=== PATIENT | male | born 1955 | race Caucasian/White ===

== ENCOUNTER 2017-03-02 15:43 | Emergency (ER) | payer OTHER ==
[2017-03-02 16:36] LABS: Hematocrit 44 % (42-52); Hemoglobin 14.9 g/dl (14.0-18.0); Mean Corpuscular HGB Conc 34 g/dl (31-36); Mean Corpuscular Hemoglobin 32 pg (27-31); Mean Corpuscular Volume 93 fL (80-94); Mean Platelet Volume 8 um3 (7.4-10.4); Red Blood Count 4.71 10^6/ul (4.0-5.4); Red Cell Distribution Width 15 % (10.5-15); White Blood Count 7.6 10^3/ul (3.5-10.8)
[2017-03-02 16:53] LABS: Albumin 3.9 g/dL (3.2-5.2); BUN/Creatinine Ratio 14.3 (8-20); C Reactive Protein 4.44 mg/L (< 5.00); EGFR African American 86.3 (>60); EGFR Non-African American 67.1 (>60); Globulin 3.9 g/dL (2-4); Total Bilirubin 0.5 mg/dL (0.2-1.0); Total Protein 7.8 g/dL (6.4-8.9)
[2017-03-02 16:54] LABS: Troponin I 0.01 ng/mL (<0.04)
[2017-03-02 17:23] LABS: Potassium 4.1 mmol/L (3.5-5.0)
[2017-03-02 17:38] LABS: Urine Bacteria Absent (Absent); Urine Bilirubin Negative (Negative); Urine Glucose Negative (Negative); Urine Nitrite Negative (Negative)
[2017-03-02] MEDS ORDERED: Iohexol 300* (CONTRAST) 10 ML SDV IV ONE (17:43)
--- NOTE | 2017-03-02 18:30 | RAD ---
INDICATION: LEFT upper quadrant pain. Bulge in abdomen. Previous hernia repair. COMPARISON: August 01, [address] TECHNIQUE: Multidetector CT images were obtained from the lung bases to the ischial tuberosities with 150 mL Omnipaque 300 IV and oral contrast. Multiplanar reformation. REPORT: Mild LEFT basilar subsegmental atelectasis attributable to mild LEFT hemidiaphragm elevation. Unremarkable liver and gallbladder. Mildly atrophic pancreas. Unremarkable spleen. No CT abnormality of the upper GI, small bowel, medially extending appendix. Mild colonic diverticulosis without findings of diverticulitis. Negative for ascites or free air. 3.4 x 4.1 cm axial plane fat-containing RIGHT inguinal hernia without inflammatory change. 1.2 cm LEFT adrenal nodule consistent with a benign lipid rich adenoma based on comparison with the previous noncontrast CT from 2014 without change in size. Unremarkable RIGHT adrenal gland. Unremarkable kidneys with symmetric nephrograms and pyelograms. Symmetric nephrograms and pyelograms. No suspicious renal lesions or hydronephrosis. Unremarkable nondilated ureters and largely decompressed urinary bladder. Coarse calcification at the prostate. Symmetric seminal vesicles. Negative for lymphadenopathy. Atherosclerotic calcification of normal diameter abdominal aorta and iliac arteries. Physiologic distention of the IVC. Lumbar sacral spine degenerative spondylosis and facet joint osteoarthritis. Associated reactive endplate sclerosis most prominent at L2-L3. No fracture or suspicious focal osseous lesions evident. IMPRESSION: 1. Small to moderate fat-containing RIGHT inguinal hernia without inflammatory change. No additional hernias evident. 2. Normal appendix documented. 3. Mild colonic diverticulosis without findings of diverticulitis. 4. Negative for obstructive uropathy. 5. Unchanged small benign lipid rich adenoma at the LEFT adrenal gland. 6. No etiology for LEFT upper quadrant pain evident.
[2017-03-02 18:56] VITALS: BP 128/77
--- NOTE | 2017-03-03 16:41 | ED ---
Kevin Jefferson Alfonso, scribed for Edwardo Ponce MD on 03/02/17 at 1608 . Abdominal Pain/Male - HPI Summary HPI Summary: This patient is a 61 year old M [facility] by with a chief complaint of LUQ abdominal pain gradually worsening since 2-3 weeks ago. He reports his LUQ will bulge out and get real hard. The patient rates the pain 1/10 in severity. Symptoms aggravated by ambulation. Symptoms alleviated by nothing. Patient reports soft stools. Patient denies N/V, fever, CP, and SOB. He reports an outpatient US scheduled in two days. - History of Current Complaint Chief Complaint: EDAbdPain Stated Complaint: ABD PAIN Time Seen by Provider: 03/02/17 16:01 Hx Obtained From: Patient Onset/Duration: Gradual Onset, Lasting Weeks - 2-3, Still Present Timing: Constant Severity Currently: Mild Pain Intensity: 1 Pain Scale Used: 0-10 Numeric Location: Discrete At: LUQ Aggravating Factor(s): Other: - ambulation Alleviating Factor(s): Nothing Associated Signs And Symptoms: Positive: Other - Patient reports soft stools. Patient denies N/V, fever, CP, and SOB. - Allergies/Home Medications Allergies/Adverse Reactions: Allergies Allergy/AdvReac Type Severity Reaction Status Date / Time No Known Allergies Allergy Verified 02/13/17 15:32 PMH/Surg Hx/FS Hx/Imm Hx Endocrine/Hematology History: Denies: Hx Diabetes Cardiovascular History: Reports: Hx Hypercholesterolemia, Hx Hypertension Denies: Hx Pacemaker/ICD Respiratory History: Reports: Hx Chronic Obstructive Pulmonary Disease (COPD) History: Denies: Hx Renal Disease Sensory History: Denies: Hx Hearing Aid EENT History: Denies: Hx Deafness Neurological History: Reports: Other Neuro Impairments/Disorders - PAIN CLINIC PATIENT Psychiatric History: Denies: Hx Panic Disorder - Surgical History Surgery Procedure, Year, and Place: cardiac cath >15 yrs ago with stent(DOES NOT HAVE CARDS),hernia surgery x2, Infectious Disease History: No Infectious Disease History: Denies: Traveled Outside the [place] in Last 30 Days - Family History Known Family History: Positive: Other - CVA - Social History Alcohol Use: None Hx Substance Use: No Substance Use Type: Reports: None Substance Use Comment - Amount & Last Used: oxycodone Hx Tobacco Use: Yes Smoking Status (MU): Former Smoker Type: Cigarettes Amount Used/How Often: 1/2 ppd Have You Smoked in the Last Year: Yes Review of Systems Negative: Fever Negative: Chest Pain Negative: Shortness Of Breath Positive: Abdominal Pain, Other - "soft stools". Negative: Vomiting, Nausea All Other Systems Reviewed And Are Negative: Yes Physical Exam - Summary Physical Exam Summary: VITAL SIGNS: Reviewed. GENERAL: Patient is a well-developed and obese male who is lying comfortable in the stretcher. NAD. Patient is not in any acute respiratory distress. HEAD AND FACE: Normocephalic and atraumatic. EYES: PERRLA, EOMI x 2, No injected conjunctiva. EARS: Hearing grossly intact. Ear canals and tympanic membranes are WNL. MOUTH: Oropharynx within normal limits. NECK: Supple, trachea is midline, no adenopathy, no JVD. CHEST: Symmetric, no tenderness at palpation LUNGS: Clear to auscultation bilaterally. No wheezing or crackles. CVS: RRR, S1 and S2 present, no murmurs or gallops appreciated. ABDOMEN: Soft, Slight LUQ tenderness. No signs of distention. Positive bowel sounds. No rebound no guarding, and no masses palpated. No abdominal bruit or pulsations. EXTREMITIES: FROM in all major joints, no edema, no cyanosis or clubbing. NEURO: Alert and oriented x 3. No acute neurological deficits. Speech is normal. SKIN: Dry and warm Triage Information Reviewed: Yes Vital Signs On Initial Exam: Initial Vitals Temp Pulse Resp BP Pulse Ox 97 F 94 24 158/93 96 03/02/17 15:46 03/02/17 15:46 03/02/17 15:46 03/02/17 15:46 03/02/17 15:46 Vital Signs Reviewed: Yes Diagnostics - Vital Signs Vital Signs Temp Pulse Resp BP Pulse Ox 03/02/17 15:46 97 F 94 24 158/93 96 - Laboratory Result Diagrams: 03/02/17 16:25 03/02/17 16:25 Lab Statement: Any lab studies that have been ordered have been reviewed, and results considered in the medical decision making process. - CT A/P CT Interpretation Completed By: Radiologist - 1. Small to moderate fat- containing RIGHT inguinal hernia without inflammatory change. No additional hernias evident. 2. Normal appendix documented. 3. Mild colonic diverticulosis without findings of diverticulitis. 4. Negative for obstructive uropathy. 5. Unchanged small benign lipid rich adenoma at the LEFT adrenal gland. 6. No etiology for LEFT upper quadrant pain evident. ED physician has reviewed this radiology report and agrees. - EKG 1611 Cardiac Rate: NL EKG Rhythm: Sinus Rhythm - 86 BPM EKG Interpretation: No ST elevation Abdominal Pain Fem Course/Dx - Course Assessment/Plan: This patient is a 61 year old M presenting to [facility] accompanied by with a chief complaint of LUQ abdominal pain gradually worsening since 2-3 weeks ago. He reports his LUQ will bulge out and get real hard. The patient rates the pain 1/10 in severity. Symptoms aggravated by ambulation. Symptoms alleviated by nothing. Patient reports soft stools. Patient denies N/ V, fever, CP, and SOB. He reports an outpatient US scheduled in two days. An EKG reveals Sinus Rhythm at 89 BPM, No ST elevation. CT A/P reveals, per radiologist, 1. Small to moderate fat-containing RIGHT inguinal hernia without inflammatory change. No additional hernias evident. 2. Normal appendix documented. 3. Mild colonic diverticulosis without findings of diverticulitis. 4. Negative for obstructive uropathy. 5. Unchanged small benign lipid rich adenoma at the LEFT adrenal gland. 6. No etiology for LEFT upper quadrant pain evident. ED physician has reviewed this radiology report and agrees. Test results with no significant abnormalities. Since there are no significant abnormalities and the patient no longer has any complains, he will be discharged with follow up from PCP. The patient is agreeable with this plan. The patient is hemodynamically stable, alert and oriented x3. - Diagnoses Provider Diagnoses: LUQ abdominal pain Discharge - Discharge Plan Condition: Stable Disposition: HOME Patient Education Materials: Abdominal Pain (ED) Referrals: Chrissy Gabriel NP [Primary Care Provider] - Additional Instructions: RETURN TO THE EMERGENCY DEPARTMENT FOR CHANGING OR WORSENING SYMPTOMS. The documentation as recorded by the Kevin mulligan Alfonso accurately reflects the service I personally performed and the decisions made by Kris locke Walter, MD.
== END 2017-03-02 18:55 | disposition home or self-care (01) ==
LOC: ED 15:43
DX: R10.12 Left upper quadrant pain (principal); Z87.891 Personal history of nicotine dependence
CPT/HCPCS: 36415; 74177; 80053; 81003; 81015; 83605; 83690; 84484; 85025; 86140; 87086; 93005; 99282; Q9967